=== PATIENT | female | born 1945 | race Caucasian/White ===

== ENCOUNTER 2017-04-27 16:46 | Observation (INO) | payer MEDICARE ==
[~2017-04-27] VITALS: Ht 175.3 cm; Wt 72.6 kg
[2017-04-27 17:16] VITALS: BP 111/41
[2017-04-27 17:22] LABS: BASOPHILS % (AUTO) 0.6 % (0.0-2.0); EOSINOPHILS % (AUTO) 1.7 % (0.0-3.0); LYMPHOCYTES % (AUTO) 27.8 % (20.0-45.0); MEAN CORPUSCULAR HEMOGLOBIN 30.8 PG (27.0-31.0); MEAN CORPUSCULAR HGB CONC 33.5 G/DL (32.0-36.0); MEAN CORPUSCULAR VOLUME 92 FL (80-99); MEAN PLATELET VOLUME 7.1 FL (6.5-10.1); MONOCYTES % (AUTO) 6.7 % (1.0-10.0); NEUTROPHILS % (AUTO) 63.2 % (45.0-75.0); PLATELET COUNT 249 K/UL (150-450); RED BLOOD COUNT 4.49 M/UL (4.20-5.40); RED CELL DISTRIBUTION WIDTH 11.4 % (11.6-14.8); WHITE BLOOD COUNT 7.9 K/UL (4.8-10.8)
[2017-04-27 17:31] LABS: ANION GAP 12 mmol/L (5-15); CALCIUM 9.3 MG/DL (8.5-10.1); CARBON DIOXIDE 25 MMOL/L (21-32); CHLORIDE 104 MMOL/L (98-107); POTASSIUM 3.6 MMOL/L (3.5-5.1); SODIUM 141 MMOL/L (136-145)
[2017-04-27 17:48] LABS: ALANINE AMINOTRANSFERASE 10 U/L (12-78); ALBUMIN/GLOBULIN RATIO 1.2 (1.0-2.7); ASPARTATE AMINO TRANSFERASE 17 U/L (15-37); CKMB 2.2 NG/ML (0.0-3.6); CRP QUANT < 0.4 mg/dL (0.00-0.90); LIPASE 96 U/L (73-393); TOTAL PROTEIN 7.1 G/DL (6.4-8.2)
[2017-04-27 18:07] VITALS: BP 107/67
[2017-04-27 18:07] LABS: ACETAMINOPHEN < 2 MCG/ML (10-30); ALCOHOL 3 mg/dL
[2017-04-27] MEDS ORDERED: MOBIC7.5 MG ORAL (19:05)
[2017-04-27] MEDS ORDERED: CITALOPRAM HBR20 M1 ORAL (19:06)
[2017-04-27] MEDS ORDERED: TEMAZEPAM30 MG ORAL (19:07)
[2017-04-27] MEDS ORDERED: Zolpidem 5mg tab ORAL PRN (19:15)
[2017-04-27 19:22] LABS: APPEARANCE,URINE SLIGHTLY CLOUDY; KETONES,URINE 3+ (NEGATIVE); LEUKOCYTE ESTERASE ,URINE 3+ (NEGATIVE); NITRITE,URINE NEGATIVE (NEGATIVE); PH,URINE 7 (4.5-8.0); PROTEIN,URINE 2+ (NEGATIVE); UROBILINOGEN,URINE NORMAL MG/DL (0.0-1.0)
[2017-04-27 19:33] LABS: SQUAMOUS EPITHELIAL CELL,UR MANY /LPF (NONE/OCC); WBC,URINE TNTC /HPF (0 - 2)
[2017-04-27 19:34] VITALS: BP 121/77
[2017-04-27 19:34] LABS: BACTERIA,URINE MODERATE /HPF
--- NOTE | 2017-04-27 19:37 | History & Physical ---
History and Physical History & Physicial dict TIA UTI LEV KOCH Apr 27, 2017 19:37
[2017-04-27] MEDS ORDERED: cefTRIAXone 2 GM in D5W 55 ML IVPB ONE (19:45)
--- NOTE | 2017-04-27 20:12 | Neurology Progress Note ---
Objective Physical Exam Last Vital Signs Date Time Temp Pulse Resp B/P (MAP) Pulse Ox O2 Delivery O2 Flow Rate FiO2 04/27/17 19:34 97.3 70 16 121/77 100 Room Air Laboratory Tests Test 04/27/17 17:09 04/27/17 17:21 White Blood Count 7.9 K/UL (4.8-10.8) Red Blood Count 4.49 M/UL (4.20-5.40) Hemoglobin 13.8 G/DL (12.0-16.0) Hematocrit 41.2 % (37.0-47.0) Mean Corpuscular Volume 92 FL (80-99) Mean Corpuscular Hemoglobin 30.8 PG (27.0-31.0) Mean Corpuscular Hemoglobin Concent 33.5 G/DL (32.0-36.0) Red Cell Distribution Width 11.4 % (11.6-14.8) L Platelet Count 249 K/UL (150-450) Mean Platelet Volume 7.1 FL (6.5-10.1) Neutrophils (%) (Auto) 63.2 % (45.0-75.0) Lymphocytes (%) (Auto) 27.8 % (20.0-45.0) Monocytes (%) (Auto) 6.7 % (1.0-10.0) Eosinophils (%) (Auto) 1.7 % (0.0-3.0) Basophils (%) (Auto) 0.6 % (0.0-2.0) Sodium Level 141 MMOL/L (136-145) Potassium Level 3.6 MMOL/L (3.5-5.1) Chloride Level 104 MMOL/L (98-107) Carbon Dioxide Level 25 MMOL/L (21-32) Anion Gap 12 mmol/L (5-15) Blood Urea Nitrogen 19 mg/dL (7-18) H Creatinine 1.0 MG/DL (0.55-1.30) Estimat Glomerular Filtration Rate 55.0 mL/min (>60) Glucose Level 136 MG/DL (74-106) H Calcium Level 9.3 MG/DL (8.5-10.1) Total Bilirubin 0.4 MG/DL (0.2-1.0) Aspartate Amino Transf (AST/SGOT) 17 U/L (15-37) Alanine Aminotransferase (ALT/SGPT) 10 U/L (12-78) L Alkaline Phosphatase 64 U/L (46-116) Total Creatine Kinase 40 U/L (26-308) Creatine Kinase MB 2.2 NG/ML (0.0-3.6) Creatine Kinase MB Relative Index 5.5 Troponin I 0.021 ng/mL (0.000-0.056) C-Reactive Protein, Quantitative < 0.4 mg/dL (0.00-0.90) Pro-B-Type Natriuretic Peptide 81 pg/mL (0-125) Total Protein 7.1 G/DL (6.4-8.2) Albumin 3.9 G/DL (3.4-5.0) Globulin 3.2 g/dL Albumin/Globulin Ratio 1.2 (1.0-2.7) Lipase 96 U/L (73-393) Salicylates Level 0.8 ug/mL (2.8-20) L Acetaminophen Level < 2 MCG/ML (10-30) L Serum Alcohol 3 mg/dL Urine Color Pale yellow Urine Appearance Slightly cloudy Urine pH 7 (4.5-8.0) Urine Specific [place] 1.010 (1.005-1.035) Urine Protein 2+ (NEGATIVE) H Urine Glucose (UA) Negative (NEGATIVE) Urine Ketones 3+ (NEGATIVE) H Urine Occult Blood 1+ (NEGATIVE) H Urine Nitrite Negative (NEGATIVE) Urine Bilirubin Negative (NEGATIVE) Urine Urobilinogen Normal MG/DL (0.0-1.0) Urine Leukocyte Esterase 3+ (NEGATIVE) H Urine RBC 10-15 /HPF (0 - 2) H Urine WBC Tntc /HPF (0 - 2) H Urine Squamous Epithelial Cells Many /LPF (NONE/OCC) H Urine Bacteria Moderate /HPF (NONE) H Urine Opiates Screen Negative (NEGATIVE) Urine Barbiturates Screen Negative (NEGATIVE) Phencyclidine (PCP) Screen Negative (NEGATIVE) Urine Amphetamines Screen Negative (NEGATIVE) Urine Benzodiazepines Screen Negative (NEGATIVE) Urine Cocaine Screen Negative (NEGATIVE) Urine Marijuana (THC) Screen Negative (NEGATIVE) Impression/Recommendations Problems: (1) TIA (transient ischemic attack) (2) UTI (urinary tract infection) (3) r/o gerd/ r/o CAD Status: unchanged Recommendations # [id number] NEMESIO JEFFERSON Apr 27, 2017 20:12
[2017-04-27 21:15] VITALS: BP 116/71
--- NOTE | 2017-04-27 22:02 | Emergency Room Report ---
History of Present Illness General Chief Complaint: Generalized Weakness Source: EMS Present Illness HPI Patient is a 71-year-old female who presented after increased difficulty with speech. The patient was noted to have a recent history of epigastric burning sensation which was relieved by taking calcium carbonate antacids. She had recently had a normal physical exam. She denies any dysuria. She reports having episode which she was having some word finding difficulty. This resolved prior to being seen. The patient was noted by her daughter to be somewhat diaphoretic and to have wet the bed. There is no reported loss of consciousness. Patient reports feeling somewhat weaker than her baseline. The she has prior history of depression Allergies: Coded Allergies: No Known Allergies (Unverified , 04/27/17) Patient History Past Medical History: see triage record Now: No Reviewed Nursing Documentation: PMH: Agreed, PSxH: Agreed Nursing Documentation-PMH Past Medical History: No History, Except For Hx Neurological Problems: Yes - Psychiatric Review of Systems All Other Systems: negative except mentioned in HPI Physical Exam Vital Signs Date Time Temp Pulse Resp B/P (MAP) Pulse Ox O2 Delivery O2 Flow Rate FiO2 04/27/17 16:44 97.3 77 18 113/65 98 Room Air Sp02 EP Interpretation: reviewed, normal General Appearance: normal inspection, well appearing, no apparent distress, alert, GCS 15 Head: atraumatic ENT: normal ENT inspection, hearing grossly normal, normal voice Neck: normal inspection, full range of motion, supple, no bony tend Respiratory: normal inspection, lungs clear, normal breath sounds, no respiratory distress, no retraction, no wheezing Cardiovascular #1: regular rate, rhythm, no edema Gastrointestinal: normal inspection, normal bowel sounds, non tender, soft, no guarding, no hernia Genitourinary: no CVA tenderness Musculoskeletal: normal inspection, back normal, normal range of motion Neurologic: normal inspection, alert, oriented x3, responsive, electrical and instrument mechanic III-XII nml as tested, motor strength/tone normal, speech normal Psychiatric: normal inspection, judgement/insight normal, mood/affect normal Skin: normal inspection, normal color, no rash Medical Decision Making Diagnostic Impression: Primary Impression: TIA (transient ischemic attack) Additional Impression: UTI (urinary tract infection) ER Course The patient presented for neurologic deficit. Differential diagnosis included was not limited to transient ischemic attack, myocardial infarction, pulmonary embolism, sepsis, seizure among others. Because of complexity of patient's case laboratory testing and imaging studies were ordered.Because of complexity of patient's case laboratory testing and imaging studies were ordered. The patient was noted to have nonfocal neurologic exam at this time. Patient was given IV fluids as well as IV antibiotics for urinary infection. CT of head per radiologist showed no evidence of acute CVA or hemorrhage. Because of concern of a recent neurologic findings as well as chest pain CTA of the neck was ordered which showed no evidence of acute dissection. There was noted to be a diminutive vertebral artery. Dr. Sidney Acuña was contacted for inpatient management due to primary care coverage. Labs Test 04/27/17 17:09 04/27/17 17:21 04/27/17 20:50 White Blood Count 7.9 K/UL (4.8-10.8) Red Blood Count 4.49 M/UL (4.20-5.40) Hemoglobin 13.8 G/DL (12.0-16.0) Hematocrit 41.2 % (37.0-47.0) Mean Corpuscular Volume 92 FL (80-99) Mean Corpuscular Hemoglobin 30.8 PG (27.0-31.0) Mean Corpuscular Hemoglobin Concent 33.5 G/DL (32.0-36.0) Red Cell Distribution Width 11.4 % (11.6-14.8) Platelet Count 249 K/UL (150-450) Mean Platelet Volume 7.1 FL (6.5-10.1) Neutrophils (%) (Auto) 63.2 % (45.0-75.0) Lymphocytes (%) (Auto) 27.8 % (20.0-45.0) Monocytes (%) (Auto) 6.7 % (1.0-10.0) Eosinophils (%) (Auto) 1.7 % (0.0-3.0) Basophils (%) (Auto) 0.6 % (0.0-2.0) Sodium Level 141 MMOL/L (136-145) Potassium Level 3.6 MMOL/L (3.5-5.1) Chloride Level 104 MMOL/L (98-107) Carbon Dioxide Level 25 MMOL/L (21-32) Anion Gap 12 mmol/L (5-15) Blood Urea Nitrogen 19 mg/dL (7-18) Creatinine 1.0 MG/DL (0.55-1.30) Estimat Glomerular Filtration Rate 55.0 mL/min (>60) Glucose Level 136 MG/DL (74-106) Calcium Level 9.3 MG/DL (8.5-10.1) Total Bilirubin 0.4 MG/DL (0.2-1.0) Aspartate Amino Transf (AST/SGOT) 17 U/L (15-37) Alanine Aminotransferase (ALT/SGPT) 10 U/L (12-78) Alkaline Phosphatase 64 U/L (46-116) Total Creatine Kinase 40 U/L (26-308) Creatine Kinase MB 2.2 NG/ML (0.0-3.6) Creatine Kinase MB Relative Index 5.5 Troponin I 0.021 ng/mL (0.000-0.056) C-Reactive Protein, Quantitative < 0.4 mg/dL (0.00-0.90) Pro-B-Type Natriuretic Peptide 81 pg/mL (0-125) Total Protein 7.1 G/DL (6.4-8.2) Albumin 3.9 G/DL (3.4-5.0) Globulin 3.2 g/dL Albumin/Globulin Ratio 1.2 (1.0-2.7) Lipase 96 U/L (73-393) Salicylates Level 0.8 ug/mL (2.8-20) Acetaminophen Level < 2 MCG/ML (10-30) Serum Alcohol 3 mg/dL Urine Color Pale yellow Urine Appearance Slightly cloudy Urine pH 7 (4.5-8.0) Urine Specific [place] 1.010 (1.005-1.035) Urine Protein 2+ (NEGATIVE) Urine Glucose (UA) Negative (NEGATIVE) Urine Ketones 3+ (NEGATIVE) Urine Occult Blood 1+ (NEGATIVE) Urine Nitrite Negative (NEGATIVE) Urine Bilirubin Negative (NEGATIVE) Urine Urobilinogen Normal MG/DL (0.0-1.0) Urine Leukocyte Esterase 3+ (NEGATIVE) Urine RBC 10-15 /HPF (0 - 2) Urine WBC Tntc /HPF (0 - 2) Urine Squamous Epithelial Cells Many /LPF (NONE/OCC) Urine Bacteria Moderate /HPF (NONE) Urine Opiates Screen Negative (NEGATIVE) Urine Barbiturates Screen Negative (NEGATIVE) Phencyclidine (PCP) Screen Negative (NEGATIVE) Urine Amphetamines Screen Negative (NEGATIVE) Urine Benzodiazepines Screen Negative (NEGATIVE) Urine Cocaine Screen Negative (NEGATIVE) Urine Marijuana (THC) Screen Negative (NEGATIVE) Lactic Acid Level 1.20 mmol/L (0.66-2.22) EKG Diagnostic Results Rate: normal Rhythm: NSR ST Segments: no acute changes Rhythm Strip Diag. Results EP Interpretation: yes Rhythm: NSR, no PVC's, no ectopy Last Vital Signs Date Time Temp Pulse Resp B/P (MAP) Pulse Ox O2 Delivery O2 Flow Rate FiO2 04/27/17 19:34 97.3 70 16 121/77 100 Room Air Status: unchanged Disposition: ADMITTED INPATIENT Condition: Serious Referrals: NON PHYSICIAN (PCP) Dino Rutledge Apr 27, 2017 22:02
[2017-04-27 23:18] VITALS: BP 109/53
[2017-04-28] VITALS: BP 97/53
--- NOTE | 2017-04-28 02:30 | History and Physical Report ---
DATE OF ADMISSION: 04/27/2017 HISTORY OF PRESENT ILLNESS: The patient is a very pleasant, 71-year-old woman who is generally in good health. She came to the emergency department today after several days of heartburn. Today, the heartburn is quite severe and then she became diaphoretic and began having difficulty finding words with some aphasia described by her daughter to the emergency physician. The bed was noted to be wet, although the patient does not recall urinating. The aphasia lasted about half an hour. There was no focal weakness or facial disfigurement. She never had any neurologic events in the past and has no major past medical history. She was evaluated in emergency department. CT scan of the head and laboratory studies were unremarkable. Admission for observation was arranged. PAST MEDICAL HISTORY: Bilateral hip replacement, osteoarthritis, and depression. ALLERGIES: None. MEDICATIONS: Tylenol, Celexa, meloxicam, Zofran, temazepam. REVIEW OF SYSTEMS: Otherwise unremarkable. PHYSICAL EXAMINATION: GENERAL: The patient is alert and responds appropriately. The vital signs are normal. HEENT: The head is normocephalic. NECK: Has no jugular venous distention. The carotids are 2+ without bruits. CHEST: Clear. CARDIAC: Rhythm is regular without murmur or gallop. ABDOMEN: Soft and nontender. EXTREMITIES: No clubbing, cyanosis, or edema. NEUROLOGIC: No focal weakness. Cranial nerves are intact. Speech is fluent. Reflexes are equal bilaterally. LABORATORY STUDIES AND IMAGING: Reviewed. IMPRESSION: 1. Transient ischemic attack. 2. Acid reflux disease. 3. Osteoarthritis. PLAN: The patient will be observed overnight for any neurologic changes. Neurology consultation has been requested. We will get an echocardiogram and carotid duplex scan. Sidney Acuña M.D. DR: BALA JOB#: [id number] CC: Benson Spence M.D.; Fax#: [phone]
--- NOTE | 2017-04-28 03:45 | Consultation ---
DATE OF CONSULTATION: 04/27/2017 NEUROLOGICAL CONSULTATION CONSULTING PHYSICIAN: Benson Spence M.D. HISTORY OF PRESENT ILLNESS: The patient is a 70-year-old female, seen in neurological consultation to evaluate presence of TIA. According to the patient, last week she had a persistent heartburn sensation. Today at noon time, it became severe. She took a couple of Tums and noted that she is perspiring. At that point, she started to notice that she cannot really find proper words. She was unable to recall daughter's name. She felt dizzy and shaky. Her daughter added that the patient had difficulty ambulation and had episodes of urinary incontinence. The patient denies any changes in level of consciousness. She recalls "everything except I could not find words." Within 30 to 40 minutes, symptoms started to improve and on arrival to this hospital, she was already able to speak fluent, although somewhat confused when she was keep asking where she is. Her vital signs were stable. She was afebrile. Blood pressure 113/65, temperature 97.3, heart rate of 77, respirations of 18. Laboratory studies were obtained. This revealed normal CBC study. Chemistry panel with BUN of 19, blood sugar 136. Normal troponin, otherwise normal study. Urinalysis with WBCs too numerous to count, 3+ leukocyte esterase, 3+ ketones, 2+ protein. Toxicology panel was negative. Since admission to present, her condition remained stable. No further paroxysmal events. No heartburns. She was able to ambulate without assistance. PAST MEDICAL HISTORY: The patient indicates that she has been depressed since she became , maintained on Celexa 20 mg daily. She has "aches and pains," arthralgia and treated with meloxicam and as needed temazepam for insomnia. ALLERGIES: None reported. SOCIAL HISTORY: She lives alone, has good friends and family. There is no alcohol, no drug abuse, and nonsmoker. She likes daily walk. FAMILY HISTORY: Noncontributory. REVIEW OF SYMPTOMS: Currently, the patient feels well. Denies headache or dizziness. No chest pain or palpitations. No respiratory difficulties. Denies abdominal pain or discomfort. No urine or bowel incontinence. She has right joint aches. PHYSICAL EXAMINATION: GENERAL: This is a well-developed, well-nourished, pleasant lady, not in acute distress, lying comfortably in bed. Her girlfriend is at the bedside. VITAL SIGNS: Now remained stable, temperature 97.3, blood pressure 129/77. HEENT: Head normocephalic. There is no evidence of trauma. Eyes, ears, and throat are clear. NECK: Supple. No meningeal signs. MUSCULOSKELETAL: Unremarkable. There are no deformities. Peripheral pulses 1+ and symmetric. SKIN: No rash. MENTAL STATUS: The patient is alert and oriented x3. Her speech is fluent. Language intact. There is no aphasia. No apraxia. Her cognitive function is normal. CRANIAL NERVE II: Pupils both responding to light and accommodation. Extraocular movement intact. No nystagmus. CRANIAL NERVE V: Normal corneal responses. CRANIAL NERVE VII: No facial asymmetry. CRANIAL NERVE VIII: Normal hearing. CRANIAL NERVES IX THROUGH XII: Tongue is in midline. Symmetric palate elevation. MOTOR EXAMINATION: Revealed normal muscle tone and strength 5/5 in all extremities. No involuntary movement. Deep tendon reflexes 1+ symmetric with downgoing toes on both sides. SENSORY: Normal to pinprick and light touch. Gait is stable. IMPRESSION: 1. Transient expressive aphasia, probably transient ischemic attack, rule out toxic encephalopathy in the setting of urinary tract infection. 2. Urinary tract infection/rule out urosepsis. 3. Arthralgia. 4. History of depression. 5. Persistent heartburn, rule out esophageal abnormality, rule out coronary artery disease. RECOMMENDATIONS: 1. A 2D echocardiogram, normal cardiac monitoring. 2. Lipid panel, SHRUTI, sedimentation rate, coagulation panel, urine culture, and blood culture. 3. Carotid duplex study. 4. Start on aspirin 81 mg daily. Continue with IV fluids and antibiotics to cover underlying infection. 5. We will follow with you. Thank you for allowing me to see this interesting patient in neurological consultation. Benson Spence M.D. DR: Ellis JOB#: [id number] CC:
[2017-04-28 07:54] LABS: BASOPHILS % (AUTO) 0.5 % (0.0-2.0); EOSINOPHILS % (AUTO) 1.6 % (0.0-3.0); LYMPHOCYTES % (AUTO) 27.6 % (20.0-45.0); MEAN CORPUSCULAR HEMOGLOBIN 30.9 PG (27.0-31.0); MEAN CORPUSCULAR HGB CONC 33.2 G/DL (32.0-36.0); MEAN CORPUSCULAR VOLUME 93 FL (80-99); MEAN PLATELET VOLUME 6.9 FL (6.5-10.1); MONOCYTES % (AUTO) 6.5 % (1.0-10.0); NEUTROPHILS % (AUTO) 63.8 % (45.0-75.0); PLATELET COUNT 241 K/UL (150-450); RED BLOOD COUNT 4.18 M/UL (4.20-5.40); RED CELL DISTRIBUTION WIDTH 11.4 % (11.6-14.8); WHITE BLOOD COUNT 7.5 K/UL (4.8-10.8)
[2017-04-28 08:00] VITALS: BP 126/61
[2017-04-28 08:23] LABS: ALANINE AMINOTRANSFERASE 19 U/L (12-78); ALBUMIN/GLOBULIN RATIO 1.1 (1.0-2.7); ANION GAP 6 mmol/L (5-15); ASPARTATE AMINO TRANSFERASE 19 U/L (15-37); CALCIUM 9.5 MG/DL (8.5-10.1); CARBON DIOXIDE 29 MMOL/L (21-32); CHLORIDE 107 MMOL/L (98-107); CHOLESTEROL 173 MG/DL (< 200); CHOLESTEROL/HDL RATIO 2.8 (3.3-4.4); CREATININE 0.7 MG/DL (0.55-1.30); GLOMERULAR FILTRATION RATE > 60 mL/min (>60); POTASSIUM 3.8 MMOL/L (3.5-5.1); SODIUM 141 MMOL/L (136-145); THYROID STIMULATING HORMONE 3.628 uiU/mL (0.358-3.740); TOTAL PROTEIN 6.7 G/DL (6.4-8.2)
[2017-04-28] MEDS ORDERED: Citalopram Hydrobromide 10mg Tab ORAL SCH (09:00)
[2017-04-28] MEDS ORDERED: Aspirin Baby 81mg ORAL SCH (09:00)
--- NOTE | 2017-04-28 10:08 | Diagnostic Imaging Report ---
Indication: Shortness of breath Technique: XRAY CHEST 1 V Comparison: None Findings: Cardiac silhouette is obscured. There is elevation of the left hemidiaphragm. There is no gross consolidation. Degenerative changes of the spine are seen. Degenerative changes of the right shoulder are noted with subcoracoid intra-articular bodies measuring up to 2.5 cm. Impression: Elevation of the left hemidiaphragm. Otherwise no obvious acute cardiopulmonary disease.
--- NOTE | 2017-04-28 10:12 | Diagnostic Imaging Report ---
Indication: Altered mental status Technique: Continuous helical CT scanning of the head was performed utilizing automated exposure control without intravenous contrast material. Axial and coronal reconstructions were obtained. Comparison: None CT dose: Total DLP 1478 mGycm; CTDI vol 70.4 mGy Findings: There is no acute intracranial hemorrhage, mass effect or cortical edema. The ventricles, cisterns and sulci are within normal limits for age. The posterior fossa and fourth ventricle are unremarkable. Sellar and suprasellar regions are grossly unremarkable. Visualized mastoid air cells and paranasal sinuses are unremarkable. No focal lesions of the bony calvarium or soft tissues of the scalp are seen. Impression: No evidence of acute intracranial hemorrhage, mass effect or cortical edema. MRI may be obtained for more sensitive evaluation as clinically indicated. The CT scanner at [facility] is accredited by the [employer] and the scans are performed using protocols designed to limit radiation exposure to as low as reasonably achievable to attain images of sufficient resolution adequate for diagnostic evaluation.
--- NOTE | 2017-04-28 10:53 | Diagnostic Imaging Report ---
Indication: Altered mental status Technique: CT angiogram of the neck performed utilizing automated exposure control with intravenous contrast. Axial, sagittal and coronal reconstructions were obtained. 3-D volumetric reconstructions were also performed. Stenosis graded using NASCET criteria. CT dose: Total DLP 2293 mGycm; CTDI vol 51.0 mGy Comparison: None Findings: There is three-vessel configuration of the aortic arch which is normal in caliber. The bilateral common and internal carotid arteries are patent without significant stenosis. There is atherosclerotic plaquing of the right carotid bulb. The right vertebral artery is dominant. Bilateral vertebral arteries are patent without significant stenosis. The intracranial left vertebral artery is diminutive beyond the takeoff of the left posterior inferior cerebellar artery, a normal variant. The right vertebral, basilar and posterior cerebral arteries are patent. The intracranial internal and central anterior and middle cerebral arteries are also patent. There is no arterial vascular malformation. No abnormal enhancement is seen. Intra-articular bodies of the right shoulder are partially visualized. Degenerative changes of the spine are seen. There is mild atelectasis in the partially visualized lung apices. Impression: No cervical arterial occlusion or significant stenosis. Other findings as above. The CT scanner at [facility] is accredited by the [employer] and the scans are performed using protocols designed to limit radiation exposure to as low as reasonably achievable to attain images of sufficient resolution adequate for diagnostic evaluation.
--- NOTE | 2017-04-28 10:53 | Diagnostic Imaging Report ---
Indication: Altered mental status Technique: CT angiogram of the head performed utilizing automated exposure control with intravenous contrast. Axial, sagittal and coronal reconstructions were obtained. 3-D volumetric reconstructions were also performed. Stenosis graded using NASCET criteria. CT dose: Total DLP 2293 mGycm; CTDI vol 51.0 mGy Comparison: None Findings: There is three-vessel configuration of the aortic arch which is normal in caliber. The bilateral common and internal carotid arteries are patent without significant stenosis. There is atherosclerotic plaquing of the right carotid bulb. The right vertebral artery is dominant. Bilateral vertebral arteries are patent without significant stenosis. The intracranial left vertebral artery is diminutive beyond the takeoff of the left posterior inferior cerebellar artery, a normal variant. The right vertebral, basilar and posterior cerebral arteries are patent. The intracranial internal and central anterior and middle cerebral arteries are also patent. There is no arterial vascular malformation. No abnormal enhancement is seen. Intra-articular bodies of the right shoulder are partially visualized. Degenerative changes of the spine are seen. There is mild atelectasis in the partially visualized lung apices. Impression: No central intracranial arterial occlusion or significant stenosis. Other findings as above. The CT scanner at [facility] is accredited by the [employer] and the scans are performed using protocols designed to limit radiation exposure to as low as reasonably achievable to attain images of sufficient resolution adequate for diagnostic evaluation.
--- NOTE | 2017-04-28 11:52 | Neurology Progress Note ---
Interim History Interim History ROS Limited/Unobtainable: No Complaints: none Events: stable Objective Physical Exam Last Vital Signs Date Time Temp Pulse Resp B/P (MAP) Pulse Ox O2 Delivery O2 Flow Rate FiO2 04/28/17 08:00 97.2 77 21 126/61 94 04/27/17 20:35 Room Air Laboratory Tests Test 04/27/17 17:09 04/27/17 17:21 04/27/17 20:50 04/28/17 06:20 White Blood Count 7.9 K/UL (4.8-10.8) Red Blood Count 4.49 M/UL (4.20-5.40) Hemoglobin 13.8 G/DL (12.0-16.0) Hematocrit 41.2 % (37.0-47.0) Mean Corpuscular Volume 92 FL (80-99) Mean Corpuscular Hemoglobin 30.8 PG (27.0-31.0) Mean Corpuscular Hemoglobin Concent 33.5 G/DL (32.0-36.0) Red Cell Distribution Width 11.4 % (11.6-14.8) L Platelet Count 249 K/UL (150-450) Mean Platelet Volume 7.1 FL (6.5-10.1) Neutrophils (%) (Auto) 63.2 % (45.0-75.0) Lymphocytes (%) (Auto) 27.8 % (20.0-45.0) Monocytes (%) (Auto) 6.7 % (1.0-10.0) Eosinophils (%) (Auto) 1.7 % (0.0-3.0) Basophils (%) (Auto) 0.6 % (0.0-2.0) Sodium Level 141 MMOL/L (136-145) Potassium Level 3.6 MMOL/L (3.5-5.1) Chloride Level 104 MMOL/L (98-107) Carbon Dioxide Level 25 MMOL/L (21-32) Anion Gap 12 mmol/L (5-15) Blood Urea Nitrogen 19 mg/dL (7-18) H Creatinine 1.0 MG/DL (0.55-1.30) Estimat Glomerular Filtration Rate 55.0 mL/min (>60) Glucose Level 136 MG/DL (74-106) H Calcium Level 9.3 MG/DL (8.5-10.1) Total Bilirubin 0.4 MG/DL (0.2-1.0) Aspartate Amino Transf (AST/SGOT) 17 U/L (15-37) Alanine Aminotransferase (ALT/SGPT) 10 U/L (12-78) L Alkaline Phosphatase 64 U/L (46-116) Total Creatine Kinase 40 U/L (26-308) Creatine Kinase MB 2.2 NG/ML (0.0-3.6) Creatine Kinase MB Relative Index 5.5 Troponin I 0.021 ng/mL (0.000-0.056) C-Reactive Protein, Quantitative < 0.4 mg/dL (0.00-0.90) Pro-B-Type Natriuretic Peptide 81 pg/mL (0-125) Total Protein 7.1 G/DL (6.4-8.2) Albumin 3.9 G/DL (3.4-5.0) Globulin 3.2 g/dL Albumin/Globulin Ratio 1.2 (1.0-2.7) Lipase 96 U/L (73-393) Salicylates Level 0.8 ug/mL (2.8-20) L Acetaminophen Level < 2 MCG/ML (10-30) L Serum Alcohol 3 mg/dL Urine Color Pale yellow Urine Appearance Slightly cloudy Urine pH 7 (4.5-8.0) Urine Specific Dexter 1.010 (1.005-1.035) Urine Protein 2+ (NEGATIVE) H Urine Glucose (UA) Negative (NEGATIVE) Urine Ketones 3+ (NEGATIVE) H Urine Occult Blood 1+ (NEGATIVE) H Urine Nitrite Negative (NEGATIVE) Urine Bilirubin Negative (NEGATIVE) Urine Urobilinogen Normal MG/DL (0.0-1.0) Urine Leukocyte Esterase 3+ (NEGATIVE) H Urine RBC 10-15 /HPF (0 - 2) H Urine WBC Tntc /HPF (0 - 2) H Urine Squamous Epithelial Cells Many /LPF (NONE/OCC) H Urine Bacteria Moderate /HPF (NONE) H Urine Opiates Screen Negative (NEGATIVE) Urine Barbiturates Screen Negative (NEGATIVE) Phencyclidine (PCP) Screen Negative (NEGATIVE) Urine Amphetamines Screen Negative (NEGATIVE) Urine Benzodiazepines Screen Negative (NEGATIVE) Urine Cocaine Screen Negative (NEGATIVE) Urine Marijuana (THC) Screen Negative (NEGATIVE) Lactic Acid Level 1.20 mmol/L (0.66-2.22) Hemoglobin A1c 6.4 % (4.3-6.0) H Test 04/28/17 06:50 White Blood Count 7.5 K/UL (4.8-10.8) Red Blood Count 4.18 M/UL (4.20-5.40) L Hemoglobin 12.9 G/DL (12.0-16.0) Hematocrit 39.0 % (37.0-47.0) Mean Corpuscular Volume 93 FL (80-99) Mean Corpuscular Hemoglobin 30.9 PG (27.0-31.0) Mean Corpuscular Hemoglobin Concent 33.2 G/DL (32.0-36.0) Red Cell Distribution Width 11.4 % (11.6-14.8) L Platelet Count 241 K/UL (150-450) Mean Platelet Volume 6.9 FL (6.5-10.1) Neutrophils (%) (Auto) 63.8 % (45.0-75.0) Lymphocytes (%) (Auto) 27.6 % (20.0-45.0) Monocytes (%) (Auto) 6.5 % (1.0-10.0) Eosinophils (%) (Auto) 1.6 % (0.0-3.0) Basophils (%) (Auto) 0.5 % (0.0-2.0) Erythrocyte Sedimentation Rate 9 MM/HR (0-30) Anti-Thrombin III Antigen Pending Factor V Mutation Pending Sodium Level 141 MMOL/L (136-145) Potassium Level 3.8 MMOL/L (3.5-5.1) Chloride Level 107 MMOL/L (98-107) Carbon Dioxide Level 29 MMOL/L (21-32) Anion Gap 6 mmol/L (5-15) Blood Urea Nitrogen 18 mg/dL (7-18) Creatinine 0.7 MG/DL (0.55-1.30) Estimat Glomerular Filtration Rate > 60 mL/min (>60) Glucose Level 94 MG/DL (74-106) Calcium Level 9.5 MG/DL (8.5-10.1) Total Bilirubin 0.3 MG/DL (0.2-1.0) Aspartate Amino Transf (AST/SGOT) 19 U/L (15-37) Alanine Aminotransferase (ALT/SGPT) 19 U/L (12-78) Alkaline Phosphatase 66 U/L (46-116) Troponin I 0.078 ng/mL (0.000-0.056) Total Protein 6.7 G/DL (6.4-8.2) Albumin 3.5 G/DL (3.4-5.0) Globulin 3.2 g/dL Albumin/Globulin Ratio 1.1 (1.0-2.7) Triglycerides Level 70 MG/DL (30-150) Cholesterol Level 173 MG/DL (< 200) LDL Cholesterol 101 mg/dL (<100) H HDL Cholesterol 61 MG/DL (40-60) H Cholesterol/HDL Ratio 2.8 (3.3-4.4) L Phospholipids Level Pending Vitamin B12 Level 533 PG/ML (193-986) Thyroid Stimulating Hormone (TSH) 3.628 uiU/mL (0.358-3.740) Anti-Nuclear Antibody Screen Pending General: well developed, well nourished, no acute distress Head: normocophalic, atraumatic Neck: no rigidity EENT: benign Neurologic Exam Mental Status: awake, alert, oriented x4, normal cognition, good mathematical skills, normal recent memory, normal remote memory, preserved visuospatial function Speech: normal speech, no dysarthia Language: normal language, no aphasia Cranial Nerve II: fundus normal, visual de la torre, no papilledema Cranial Nerves III, IV, : PERRLA, EOMI, pupils Cranial Nerve V: normal facial sensations, temporales function normal, masseters function normal, pterygoids function normal Cranial Nerve VII: no facial asymmetry, normal facial expressions Cranial Nerve VIII: normal hearing, no nystagmus Cranial Nerve IX: normal palate elevation, gag response Cranial Nerve X: no voice hoarseness Cranial Nerve XI: SCM symmetric, trapezii function normal Cranial Nerve XII: tongue midline, no tongue atrophy/fasciculations Motor System: normal muscle tone, strength 5/5, no involuntary movement, no muscle wasting Sensory: normal pinprick, normal light touch, normal position sense, normal graphesthesia Coordination: normal finger to nose bilaterally, normal heel to lawrence bilaterally, negative Romberg test Deep Tendon Reflexes: 2+ bicep (L), 2+ bicep (R), 2+ tricep (L), 2+ tricep (R) , 2+ brachioradialis (L), 2+ brachioradialis (R), 2+ knee (L), 2+ knee (R), 2+ ankle (L), 2+ ankle (R) Stance: normal Gait: stable, normal regular, heel + toe gait Impression/Recommendations Problems: (1) TIA (transient ischemic attack) (2) UTI (urinary tract infection) (3) r/o gerd/ r/o CAD Status: stable, unchanged Recommendations # [id number] w/u in progress neuro stable asa 81mg NEMESIO JEFFERSON Apr 28, 2017 11:52
[2017-04-28 12:00] VITALS: BP 115/73
[2017-04-28] MEDS ORDERED: ATORVASTATIN CA40 MG ORAL (12:27)
[2017-04-28] MEDS ORDERED: AMOXIL250 MG ORAL (12:27)
[2017-04-28] MEDS ORDERED: PROTONIX40 MG ORAL (12:27)
[2017-04-28] MEDS ORDERED: ASPIRIN81 MG ORAL (12:27)
[2017-04-28] MEDS ORDERED: Tubing IV Secondary IV ONE (14:29)
[2017-04-28] MEDS ORDERED: NS 500ML ONE (14:29)
--- NOTE | 2017-04-30 10:08 | Cardiology Report ---
APPROVED REPORT EXAM: Two-dimensional and M-mode echocardiogram with Doppler and color Doppler. INDICATION Trans ischemic attack M-Mode DIMENSIONS IVSd0.8 (0.7-1.1cm)Left Atrium (MM)3.2 (1.6-4.0cm) LVDd4.6 (3.5-5.6cm)Aortic Root2.0 (2.0-3.7cm) PWd0.8 (0.7-1.1cm)Aortic Cusp Exc.3.2 (1.5-2.0cm) LVDs2.4 (2.5-4.0cm) PWs0.7 cm Technically difficult study due to poor acoustical windows. Normal left ventricular chamber size, systolic function and wall motion. Left ventricular ejection fraction estimated to be 55-60%. No evidence of left ventricular hypertrophy. No evidence of pericardial or pleural effusion. Right cardiac chamber sizes are within normal limits. Mild left atrial enlargement by 2D. Focal aortic valve sclerosis with adequate cusp excursion. Thickened mitral valve leaflets with normal excursion. Mild mitral annulus and aortic root calcification. Pulmonic valve is well visualized. Normal tricuspid valve structure. IVC is normal in size and collapsible with respiration. A color flow and spectral Doppler study was performed and revealed: No aortic regurgitation. No mitral regurgitation. Normal mitral diastolic function. Mild tricuspid regurgitation. Tricuspid systolic velocities suggests peak right ventricular systolic pressure of 30mmHg Pulmonic regurgitation present.
[2017-05-01 07:27] LABS: ANTI THROMBIN III ANTIGEN 86 % (72-124); PHOSPHOLIPID LEVEL 207 mg/dL (150-250)
--- NOTE | 2017-05-03 11:01 | Diagnostic Imaging Report ---
APPROVED REPORT CPT Code: 12853 Vascular Symptoms Comments: R/O STENOSIS APHAGIA Doppler Spectral Velocity Analysis RightLeft BILATERAL: CCA/BULB - Imaging reveals irregular, mild plaque (20-30%) in both carotid carotid arteries. The Doppler spectral flow analysis is within normal limits throughout the internal and external carotid arteries. VERTEBRALS - Imaging reveals both vertebral arteries to be patent, without evidence of stenosis or steal.
--- NOTE | 2017-05-03 11:04 | Cardiology Report ---
APPROVED REPORT EKG Measurement Heart [id number] Normal sinus rhythm Normal ECG
--- NOTE | 2017-05-17 09:49 | Discharge Summary ---
Discharge Summary Hospital Course Date of Admission Apr 27, 2017 at 18:30 Date of Discharge Apr 28, 2017 at 14:30 Admitting Diagnosis chest pain, acs, possible TIA HPI Rosmery Ayala is a 71 year old female who was admitted on Apr 27, 2017 at 18: 30 for Chest Pain,Acute Coronary Syndrome,Transient Hospital Course [id number] Discharge Discharge Disposition Patient was discharged to Home (01) Discharge Diagnoses: Vilma Godinez NP May 17, 2017 09:49
--- NOTE | 2017-05-17 16:17 | Discharge Summary 2 SIG ---
DATE OF ADMISSION: 04/27/2017 DATE OF DISCHARGE: 04/28/2017 TIRE MOUNTER: Benson Spence M.D. BRIEF HOSPITAL COURSE: The patient is a 71-year-old female, who is generally in good health, presented to ED after several days of heartburn. On the day of admission, symptoms were severe and she became diaphoretic and began having difficulty with finding words with associated aphasia described by the daughter. The bed was noted to be wet, although the patient does not recall urinating. Aphasia lasted about half an hour. There was no focal weakness or facial disfigurement. She never had any neurologic events in the past and no major medical history. She was evaluated at ED. CAT scan of the head was unremarkable. She was then admitted for observation and for neurologic evaluation. She was seen by Dr. Spence. Symptoms started to improve within 30 to 40 minutes and on arrival to the hospital, she was already able to speak fluently, although was somewhat confused. Toxicology panel was negative. Initial troponin was normal. Urinalysis with WBC too many to count, 3+ leukocyte esterase, 3+ ketones, and 2+ protein. She was given aspirin 81 mg daily. She had a head and neck CT that showed no cervical arterial occlusion or significant stenosis. CTA of the head showed no central intracranial arterial occlusion or significant stenosis. Carotid ultrasound showed mild plaque in both carotid arteries. Echocardiogram done showed EF 55% to 60%. She was neurologically stable. Blood culture with Staphylococcus and coagulase negative alpha hemolytic strep. She was given Amoxil b.i.d. Urine culture showed mixed gram-positive organisms. She was eventually discharged home to continue antibiotic treatment. FINAL DIAGNOSES: 1. Acute transient ischemic attack. 2. Acid reflux disease. 3. Osteoarthritis. 4. Depression. 5. Arthralgia. 6. Urinary tract infection. DISPOSITION: The patient was discharged home. DISCHARGE MEDICATIONS: Refer to medication list. Continue with aspirin 81 mg daily, atorvastatin 40 mg at bedtime, Protonix 40 mg daily, and Amoxil 250 mg q.8 h. x5 more days. DISCHARGE INSTRUCTIONS: Follow up with PMD in a week. Sidney Acuña M.D. I have been assigned to dictate discharge summary on this account and I was not involved in the patient's management. Vilma Godinez N.P. DR: NAUN JOB#: [id number] CC:
== END 2017-04-28 14:30 | disposition home or self-care (01) ==
LOC: EDBD 16:46 → EMR 17:47 → INTOOBSV 18:30 → 2E 18:30 → EDBEDREQ 18:51 → 2E 21:33
DX: G45.9 Transient cerebral ischemic attack, unspecified (principal); F32.9 Major depressive disorder, single episode, unspecified; N39.0 Urinary tract infection, site not specified; M19.90 Unspecified osteoarthritis, unspecified site; K21.9 Gastro-esophageal reflux disease without esophagitis; Z96.643 Presence of artificial hip joint, bilateral
CPT/HCPCS: 36415 ×2; 70450; 70496; 70498; 71010; 80053 ×2; 80061; 80307; 81003; 81241; 82550; 82553; 82607; 83036; 83605; 83690; 83880; 84311; 84443; 84484 ×2; 85025 ×2; 85301; 85651; 86039; 86140; 87040; 87086; 87181 ×2; 93005; 93306; 93880; 99285; G0378 ×2; G0480 ×3; J0696; J7040; Q9967; 80329

== ENCOUNTER 2017-05-16 23:04 | Emergency (ER) | payer MEDICARE ==
[~2017-05-16] VITALS: Ht 170.2 cm; Wt 77.1 kg
[~2017-05-16 23:04] MED LIST: AMOXIL250 MG ORAL; ASPIRIN81 MG ORAL; ATORVASTATIN CA40 MG ORAL; CITALOPRAM HBR20 M1 ORAL; MOBIC7.5 MG ORAL; PROTONIX40 MG ORAL; TEMAZEPAM30 MG ORAL
[2017-05-16] MEDS ORDERED: levETIRAcetam 1,000mg/NS100ml 100 ML IVPB ONE (23:15)
[2017-05-16 23:55] LABS: BASOPHILS % (AUTO) 0.6 % (0.0-2.0); HEMATOCRIT 37.2 % (37.0-47.0); HEMOGLOBIN 12.6 G/DL (12.0-16.0); MEAN CORPUSCULAR VOLUME 92 FL (80-99); MONOCYTES % (AUTO) 6.4 % (1.0-10.0); PLATELET COUNT 216 K/UL (150-450); RED BLOOD COUNT 4.06 M/UL (4.20-5.40); RED CELL DISTRIBUTION WIDTH 11.4 % (11.6-14.8); WHITE BLOOD COUNT 7.4 K/UL (4.8-10.8)
[2017-05-16 23:56] LABS: ANION GAP 8 mmol/L (5-15); BLOOD UREA NITROGEN 18 mg/dL (7-18); CARBON DIOXIDE 28 MMOL/L (21-32); CHLORIDE 106 MMOL/L (98-107); POTASSIUM 3.6 MMOL/L (3.5-5.1); SODIUM 142 MMOL/L (136-145)
[2017-05-17] MEDS ORDERED: KEPPRA500 M4 ORAL (00:28)
--- NOTE | 2017-05-17 00:28 | Emergency Room Report ---
History of Present Illness General Chief Complaint: Seizure Source: Patient Present Illness HPI This is a 71-year-old female who presents with chief complaint of seizure. She has similar symptom with aphasia and incontinence of urine on April night. She was admitted here for possible TIA. Workup was negative. CT was negative. [place] family heard a thump upstairs. When they came upstairs they saw that she had a tonic-clonic seizure activity lasting about 2 minutes. She had incontinence or urine. No other injury. Some mild tongue trauma. Patient is back to baseline now. Complaining of a mild headache the Allergies: Coded Allergies: No Known Allergies (Unverified , 04/27/17) Patient History Past Medical History: see triage record, old chart reviewed Past Surgical History: other Pertinent Family History: none Social History: Denies: smoking Now: No Immunizations: other Reviewed Nursing Documentation: PMH: Agreed, PSxH: Agreed Nursing Documentation-PMH Hx Cardiac Problems: No Hx Cancer: No Hx Gastrointestinal Problems: No Hx Neurological Problems: No Review of Systems Eye: Denies: eye pain, blurred vision ENT: Denies: ear pain, nose congestion, throat swelling Respiratory: Denies: cough, shortness of breath Cardiovascular: Denies: chest pain, palpitations Gastrointestinal: Denies: abdominal pain, diarrhea, nausea, vomiting Musculoskeletal: Denies: back pain, joint pain Skin: Denies: rash Neurological: Denies: headache, numbness Endocrine: Denies: increased thirst, increased urine Hematologic/Lymphatic: Denies: easy bruising All Other Systems: negative except mentioned in HPI Physical Exam Vital Signs Date Time Temp Pulse Resp B/P (MAP) Pulse Ox O2 Delivery O2 Flow Rate FiO2 05/16/17 22:54 98.4 68 16 102/56 95 Room Air vitals normal Sp02 EP Interpretation: reviewed, normal General Appearance: well appearing, no apparent distress, alert Head: normocephalic, atraumatic Eyes: bilateral eye PERRL, bilateral eye EOMI ENT: hearing grossly normal, normal pharynx Neck: full range of motion, supple, no meningismus Respiratory: chest non-tender, lungs clear, normal breath sounds Cardiovascular #1: regular rate, rhythm, no murmur Gastrointestinal: normal bowel sounds, non tender, no mass, no organomegaly, no bruit, non-distended Musculoskeletal: back normal, gait/station normal, normal range of motion Psychiatric: mood/affect normal Skin: warm/dry Medical Decision Making Diagnostic Impression: Primary Impression: Epileptic seizure, generalized ER Course Patient with a new onset seizure. This will be her second seizure. I go ahead and start her on antiepileptic with Keppra. We'll discharge home. She had a recent CT head was negative. Echo was unremarkable. She has followup with neurologist. Explained to the patient that she cannot drive. I will fill out a DMV report. Last Vital Signs Date Time Temp Pulse Resp B/P (MAP) Pulse Ox O2 Delivery O2 Flow Rate FiO2 05/16/17 22:54 98.4 68 16 102/56 95 Room Air Status: improved Disposition: HOME, SELF-CARE Condition: Stable Scripts Levetiracetam (KEPPRA) 500 Mg Tablet 500 MG ORAL EVERY 12 HOURS, #60 TAB 0 Refills Prov: RUDDY MASSEY M.D. 05/17/17 Patient Instructions: Seizure, Adult Additional Instructions: Followup with your neurologist CHELY. You cannot drive because of your seizure. Return if symptom worsen. RUDDY MASSEY M.D. May 17, 2017 00:28
[2017-05-17 00:30] VITALS: BP 114/50
[2017-05-17] MEDS ORDERED: Mylanta II UD 30ml ORAL ONE (00:30)
[2017-05-17 00:45] VITALS: BP 114/50
== END 2017-05-17 00:45 | disposition home or self-care (01) ==
LOC: EDBD 23:04 → EMR 23:30
DX: G40.409 Other generalized epilepsy and epileptic syndromes, not intractable, without status epilepticus (principal)
CPT/HCPCS: 36415; 80048; 85025; 96374; 99284; J1953